=== PATIENT | male | born 1960 | race Caucasian/White ===

== ENCOUNTER 2016-04-01 14:11 | Outpatient (CLI) | payer OTHER ==
[~2016-04-01] VITALS: Ht 170.2 cm; Wt 110.9 kg
[~2016-04-01 14:11] MED LIST: ASPI81TA3 PO; ATOR20TA38 PO; DOCU-144 PO; FENO145T19 PO; FLUT16SP17 NASAL; FURO20TA3 PO; INSU100C SQ; LANT3I SC; LISI20TA11 PO; LORA10TA3 PO; METO25TA4 PO; MTF1000T PO; RANI300T PO; RANO500T2 PO; RIVA20TA PO
[2016-04-01 14:31] VITALS: BP 149/72; PULSE 105; RESP 18; Ht 170.2 cm; Wt 110.9 kg
--- NOTE | 2016-04-01 14:56 | PN ---
Date/Time of Note Date/Time of Note DATE: 04/01/16 TIME: 14:53 Outpatient Progress Note Chief Complaint Hypertension/diabetes/asthma/ASHD/CHF/CVA HPI Hypertension/no headache, no dizziness, no impaired vision, no local focal new Diabetes/no bleeding except polyuria hypoglycemia, gastroparesis, Asthma/patient still has shortness of breath on exertion, no hemoptysis, no fever or chill, patient get short of breath on climbing stairs, ASHD/no chest pain or PND orthopnea, patient is seeing ultrasound tech in the morning, patient history of paroxysmal A. fib fibrillation, CHF/patient has bilateral ankle edema, patient also has slight shortness of breath on exertion, patient has minimal PND and orthopnea, CVA/no seizure or dysphagia, no new symptoms, Review of Systems Const: No Fever, no chills, no Wt. loss, no Fatigue, normal appetite, no diaphoresis. Eyes: No pain, no discharge, no redness, no visual change, no foreign body. ENT: No pain, no bleeding, no congestion, no sore throat, no dysphagia, no discharge or rhinitis. Lymph: No adenopathy, no tender nodes, no lymphedema. Resp: Mild SOB, no cough, no sputum, no wheezing, no chest pain. CV: No chest pain, no palpitaions, no WILEY, no PND, bilateral ankle edema. GI: Normal appetite, no pain, no nausea, no vomiting, no diarrhea, no blood, no constipation. : No frequency, no urgency, no dysuria, no hematuria, no flank pain, no discharge, no bleeding. Musc: No bone/joint pain, no back pain, no neck pain, no knee pain, no restricted ROM. Skin: No rash, no skin lesions, no erythema, no laceration, no bruising, no pruritus. Neuro: No BARBA, no dizziness, no syncope, no seizure, no focal-weakness. Endo: No polyuria, no polydypsia, no dry-skin, no temp-intolerance. Psych: No hallucinations, no depression, no anxiety, no suicidal ideation. Ext: Bilateral ankle edema, no pain, no ulcer, no weakness. Physical Exam Vital Signs Date Time Temp Pulse Resp B/P Pulse Ox O2 Delivery O2 Flow Rate FiO2 04/01/16 14:31 98.0 105 18 149/72 92 Room Air General Appearance: A 55 year-old male who appears well-developed, well- nourished, in no acute distress. HEENT: Head normocephalic, atraumatic. Pupils equal, round, reactive to light and accommodate. Sclerae are no jaundice. Nasal turbinates pink without erythema or nasal discharge. Mucous membranes pink and moist without lesions. Oropharynx clear without any exudate or discharge. NECK: Supple. Trachea midline, No thyromegaly, No cervical lymphadenopathy, No mass, No carotid bruits, No JVD, Carotid pulses 2+ bilaterally. PULMONARY: Clear to auscultaion bilaterally, No retractions, Chest expansion symmetric bilaterally, no rales, no ronchi, no dulness on percussion. CARDIAC: Normal SI and S2, Regular rate and rythm, no murmur, gallop, or rub. Bilateral ankle edema, GASTROINTESTINAL: Abdomen is soft, non-tender, Non Rigid, No distention, Positive bowel sounds x4 quadrants, Liver normal. SKIN: Warm, dry, no rash, no bruise, no echmosis. EXTREMITIES: Bilateral lower extremities 3+ edema, no phlabitus, pulse palpable , no contracture. MUSCULOSKELETAL: Spine Normal, Non-tender, Normal range of motion, No swelling, no deformity, no clubbing, or cyanosis, the patient 3+ edema to bilateral lower extremities, dorsalis pedis pulses palpable bilaterally. NEUROLOGIC: The patient is awake, alert, oriented, responding to yes/no questions appropriately, moving all extremities, cranial nerve intact, normal strenght, normal power, normal coordination, normal gait. Allergies Coded Allergies: No Known Allergy (Unverified , 01/12/16) PMH No change Social Hx No change Family Hx No change Assessment/Plan Impression Hypertension/diabetes/asthma/ASHD/CHF/CVA Plan Patient blood pressure slightly elevated, patient has also bilateral ankle edema , patient also has symptoms of early CHF, patient is already on Lasix 20 mg twice a day, Will increase Lasix to 40 mg in the morning, and 20 mg in the evening, Patient to follow with the ultrasound tech in the morning, CBC CMP in 2 weeks, and patient to take the report to the primary care physician , and an chest diuretics accordingly, Patient very high risk for repeated admission, Medications Home Meds Reported Medications Rivaroxaban* (Xarelto*) 20 Mg Tablet, 20 MG PO WITH DINNER, TAB 03/19/16 Ranolazine* (Ranexa*) 500 Mg Tab.sr.12h, 500 MG PO Q12, TAB 03/19/16 Ranitidine Hcl* (Ranitidine Hcl*) 300 Mg Tablet, 300 MG PO HS, #30 TAB 03/19/16 Metformin* (Glucophage*) 1,000 Mg Tablet, 1000 MG PO BID, #60 TAB 03/19/16 Loratadine* (Loratadine*) 10 Mg Tablet, 10 MG PO DAILY, #30 TAB 03/19/16 Insulin Lispro (Humalog) 100 Unit/1 Ml Cartridge, 12 UNIT SQ TID 03/19/16 Insulin Glargine* (Lantus*) 100 Unit/Ml Soln, 30 UNIT SC QHS, #1 VIAL 03/19/16 Fenofibrate Nanocrystallized* (Fenofibrate*) 145 Mg Tablet, 145 MG PO DAILY, TAB 03/19/16 Docusate Sodium* (Colace*) 100 Mg Capsule, 100 MG PO BID, #60 CAP 03/19/16 Fluticasone Propionate* (Fluticasone Propionate* Nasal) 50 Mcg/[place] - 16 Gm [place].susp, 1 SPRAY NASAL BID, #1 BOTTLE TO EACH NOSTRIL 09/08/15 Lisinopril* (Lisinopril*) 20 Mg Tablet, 20 MG PO DAILY, #30 TAB 09/08/15 Atorvastatin Calcium* (Atorvastatin Calcium*) 20 Mg Tablet, 20 MG PO QHS, #30 TAB 09/08/15 Metoprolol Tartrate* (Lopressor*) 25 Mg Tablet, 25 MG PO BID, #60 TAB 09/08/15 Furosemide* (Furosemide*) 20 Mg Tablet, 20 MG PO BID, #30 TAB 09/08/15 Aspirin* (Aspirin* Chew) 81 Mg Tab.chew, 81 MG PO DAILY, TAB.CHEW 09/08/15 Discontinued Reported Medications Furosemide* (Furosemide*) 20 Mg Tablet, 20 MG PO BID, #30 TAB 03/19/16 JES ALBRIGHT MD Apr 01, 2016 14:55
== END 2016-04-01 17:00 | disposition home or self-care (01) ==
LOC: DCC 14:11
PROVIDERS: ATTEND Internal Medicine
DX: I10 Essential (primary) hypertension (principal); E11.9 Type 2 diabetes mellitus without complications; J45.909 Unspecified asthma, uncomplicated; I25.10 Atherosclerotic heart disease of native coronary artery without angina pectoris; R60.0 Localized edema; I50.9 Heart failure, unspecified
CPT/HCPCS: G0463

== ENCOUNTER 2016-12-25 08:32 | Inpatient (IN) | payer OTHER ==
[~2016-12-25] VITALS: Ht 170.2 cm; Wt 107.0 kg
[2016-12-25] MEDS ORDERED: ASPIRIN 81 MG TAB PO STA (09:34)
--- NOTE | 2016-12-25 09:34 | ERA ---
ER Documentation Chief Complaint Date/Time DATE: 12/25/16 TIME: 08:46 Chief Complaint Pt dizzyness, BARBA and R arm weakness since last night, worst today. HPI This is a 56-year-old male with a past medical history of hypertension, hyperlipidemia, coronary artery disease, congestive heart failure, previous stroke in 2006, on Xarelto and aspirin currently who is presenting with headache , lightheadedness, right arm and leg weakness with balance issues. The patient reported to me that it started when he woke up this morning, but he initially told triage that it started last night. When he woke up this morning, it was present. He was hoping that it would go away on its own but it did not, so he came here for further evaluation. The patient's biggest concern was that he felt imbalanced and unsteady on his feet when he walked. He reports presenting similarly several years ago when he had his last stroke. He has no residual deficits from this. He takes his Xarelto and aspirin compliantly. He does not endorse dysarthria or slurred speech. He is not aphasic. The patient denies feeling sick recently. The patient denies fever or chills. The patient has had no headache or vision changes. The patient denies lightheadedness or dizziness. The patient has had no chest pain or shortness of breath trouble breathing. The patient denies abdominal pain or changes to bowel movements or urination. ROS All systems reviewed and are negative except as per history of present illness. Medications Home Meds Reported Medications Metoprolol Tartrate* (Lopressor*) 50 Mg Tab, 50 MG PO BID, #60 TAB 12/25/16 Lisinopril* (Lisinopril*) 40 Mg Tablet, 40 MG PO DAILY, #30 TAB 12/25/16 Insulin Lispro (Humalog Kwikpen) 200 Unit/1 Ml Insuln.pen, 20 UNIT SQ AC MEALS, EA 12/25/16 Insulin Glargine* (Lantus*) 100 Unit/Ml Soln, 70 UNIT SC DAILY, #1 VIAL 12/25/16 Atorvastatin* (Atorvastatin*) 40 Mg Tablet, 40 MG PO QHS, #30 TAB 12/25/16 Amlodipine Besylate* (Amlodipine Besylate*) 10 Mg Tablet, 10 MG PO DAILY, #30 TAB 12/25/16 Liraglutide (Victoza 2-Joce) 0.6 Mg/0.1 Ml Pen.injctr, 1.2 MG SQ DAILY, SYR 12/25/16 Ergocalciferol (Vitamin D2) (VITAMIN D2) 2,000 Unit Tablet, 2000 UNIT PO DAILY, TAB 12/25/16 Rivaroxaban* (Xarelto*) 20 Mg Tablet, 20 MG PO WITH DINNER, TAB 03/19/16 Ranolazine* (Ranexa*) 500 Mg Tab.sr.12h, 500 MG PO Q12, TAB 03/19/16 Ranitidine Hcl* (Ranitidine Hcl*) 300 Mg Tablet, 300 MG PO HS, #30 TAB 03/19/16 Metformin* (Glucophage*) 1,000 Mg Tablet, 1000 MG PO BID, #60 TAB 03/19/16 Loratadine* (Loratadine*) 10 Mg Tablet, 10 MG PO DAILY, #30 TAB 03/19/16 Fenofibrate Nanocrystallized* (Fenofibrate*) 145 Mg Tablet, 145 MG PO DAILY, TAB 03/19/16 Docusate Sodium* (Colace*) 100 Mg Capsule, 100 MG PO BID, #60 CAP 03/19/16 Fluticasone Propionate* (Fluticasone Propionate* Nasal) 50 Mcg/[place] - 16 Gm [place].susp, 1 SPRAY NASAL BID, #1 BOTTLE TO EACH NOSTRIL 09/08/15 Aspirin* (Aspirin* Chew) 81 Mg Tab.chew, 81 MG PO DAILY, TAB.CHEW 09/08/15 Discontinued Reported Medications Insulin Lispro (Humalog) 100 Unit/1 Ml Cartridge, 12 UNIT SQ TID 03/19/16 Insulin Glargine* (Lantus*) 100 Unit/Ml Soln, 30 UNIT SC QHS, #1 VIAL 03/19/16 Lisinopril* (Lisinopril*) 20 Mg Tablet, 20 MG PO DAILY, #30 TAB 09/08/15 Atorvastatin Calcium* (Atorvastatin Calcium*) 20 Mg Tablet, 20 MG PO QHS, #30 TAB 09/08/15 Metoprolol Tartrate* (Lopressor*) 25 Mg Tablet, 25 MG PO BID, #60 TAB 09/08/15 Furosemide* (Furosemide*) 20 Mg Tablet, 20 MG PO BID, #30 TAB 09/08/15 Allergies Allergies: Coded Allergies: No Known Allergy (Unverified , 12/25/16) PMhx/Soc History of Surgery: Yes (APPENDECTOMY) Anesthesia Reaction: No Hx Neurological Disorder: Yes (MIGRAINE, STROKE 2006) Hx Respiratory Disorders: Yes (SLEEP APNEA, HX. OF PNA) Hx Cardiac Disorders: Yes (CHF, CHESTPAINS, PALPITATIONS, ANGINA) Hx Psychiatric Problems: Yes (SWELLING LEGS) Hx Miscellaneous Medical Probl: Yes (HTN, HIGH CHOLESTEROL, SOB) Hx Alcohol Use: Yes Hx Substance Use: No Hx Tobacco Use: No FmHx Family History: diabetes Physical Exam Vitals Vital Signs Date Time Temp Pulse Resp B/P Pulse Ox O2 Delivery O2 Flow Rate FiO2 12/25/16 08:34 97.0 77 18 147/80 97 Physical Exam Const: No apparent distress, well-developed, well-nourished Head: Atraumatic Eyes: Normal Conjunctiva. Extraocular movements intact. ENT: Normal External Ears, Nose and Mouth. Neck: Full range of motion. ~ No meningismus. Resp: Clear to auscultation bilaterally Cardio: Regular rate and rhythm, no murmurs Abd: Soft, non tender, non distended. Normal bowel sounds Skin: No petechiae or rashes Back: No midline or flank tenderness Ext: No cyanosis, or edema Neur: Awake and alert, oriented 4. Cranial nerves intact. No facial droop. Normal strength and sensation in all extremities. Coordination with finger to nose normal. Mild drift to RUE and RLE. Psych: Normal Mood and Affect Result Diagram: 12/25/16 0945 12/25/16 0945 Results 24 hrs Laboratory Tests Test 12/25/16 09:45 12/25/16 10:15 White Blood Count 8.510^3/ul Red Blood Count 5.2710^6/ul Hemoglobin 15.2g/dl Hematocrit 45.5% Mean Corpuscular Volume 86.3fl Mean Corpuscular Hemoglobin 28.8pg Mean Corpuscular Hemoglobin Concent 33.4g/dl Red Cell Distribution Width 12.7% Platelet Count 07359^3/UL Mean Platelet Volume 8.8fl Neutrophils % 66.2% Lymphocytes % 19.8% Monocytes % 7.7% Eosinophils % 5.2% Basophils % 0.5% Nucleated Red Blood Cells % 0.0/100WBC Neutrophils # 5.610^3/ul Lymphocytes # 1.710^3/ul Monocytes # 0.710^3/ul Eosinophils # 0.410^3/ul Basophils # 0.010^3/ul Nucleated Red Blood Cells # 0.010^3/ul Prothrombin Time 11.8Sec Prothrombin Time Ratio 0.9 INR International Normalized Ratio 0.87 Activated Partial Thromboplast Time 25.8Sec Sodium Level 138mmol/L Potassium Level 4.0mmol/L Chloride Level 103mmol/L Carbon Dioxide Level 26mmol/L Anion Gap 13 Blood Urea Nitrogen 9mg/dl Creatinine 0.88mg/dl Glucose Level 180mg/dl Hemoglobin A1c 8.9% Calcium Level 9.6mg/dl Troponin I < 0.012ng/ml Urine Color YELLOW Urine Clarity CLEAR Urine pH 7.0 Urine Specific [place] 1.015 Urine Ketones NEGATIVEmg/dL Urine Nitrite NEGATIVEmg/dL Urine Bilirubin NEGATIVEmg/dL Urine Urobilinogen NEGATIVEmg/dL Urine Leukocyte Esterase NEGATIVELeu/ul Urine Hemoglobin NEGATIVEmg/dL Urine Glucose 3+mg/dL Urine Total Protein NEGATIVEmg/dl Urine Opiates Screen Negative Urine Barbiturates Negative Urine Amphetamines Screen Negative Urine Benzodiazepines Screen Negative Urine Cocaine Screen Negative Urine Cannabinoids Negative Current Medications Medications (Trade) Dose Ordered Sig/Lainey Route PRN Reason Start Time Stop Time Status Last Admin Dose Admin Aspirin (Aspirin) 243 mg ONCE STAT PO 12/25/16 09:34 12/25/16 09:43 DC 12/25/16 10:19 Ondansetron HCl (Zofran Inj) 4 mg ER BRIDGE PRN IV NAUSEA AND/OR VOMITING 12/25/16 13:30 12/26/16 13:29 Acetaminophen (Tylenol Tab) 650 mg ER BRIDGE PRN PO MILD PAIN/FEVER 12/25/16 13:30 12/26/16 13:29 Procedures/MDM MDM Patient's presentation warrants further investigation. The patient has a history of previous stroke. Despite being on Xarelto and aspirin, I am concerned that he could have had a TIA today. The patient's initial NIH stroke scale was 2 for mild right upper and lower extremity drift/weakness. He did not have any sensory deficits. That said, his symptoms significantly improved while in the hospital. The patient did also endorse a headache when he woke up. A complex migraine is also a possibility, but a stroke workup needs to be performed. Basic blood work will be sent off. A CT scan will be obtained to evaluate for ischemia versus hemorrhage. LABS The patient's blood work was obtained and reviewed. The patient seemed shows no leukocytosis or left shift. The patient is afebrile, and I do not suspect a systemic infection. The patient is not anemic today. The patient's platelet count is unremarkable. The patient's CMP shows no signs of metabolic or electrolyte abnormality. The patient has normal renal and hepatic function testing. The patient does have an elevated hemoglobin A1c. His INR is unremarkable. His urinalysis shows no signs of infection or hematuria. He does have 3+ glucose in his urine but no ketones. He does not have an anion gap , and I do not suspect DKA. EKG EKG read by me: Rate/Rhythm: Regular rate and rhythm at a rate of 71 Intervals: Normal [place]: Normal Impression: No evidence of acute ischemia or arrhythmia IMAGING CXR FINDINGS: The lungs are clear. The heart size is normal. There is no pleural effusion. There is no pneumothorax. IMPRESSION: 1. Normal chest radiograph. 2. No change from 09/08/2015. Electronically viewed and signed by .Timoteo Dyer MD, MD on 12/25/2016 10:08 CT Head FINDINGS: There is moderate diffuse cerebral volume loss with sulcal and ventricular dilatation. No discrete extra-axial fluid collection or masses seen. The ventricles are in the midline and of normal contour and configuration. There are multiple focal of diminished attenuation in the periventricular and subcortical white matter of both cerebral hemispheres. There is no associated mass effect. There is preservation of normal hodges-white discrimination. No intracranial hemorrhage is seen. There is normal aeration of the visualized paranasal sinuses. IMPRESSION: Atrophy. White matter disease compatible with chronic small vessel ischemia. No intracranial hemorrhage, mass or evidence of large vessel stroke. Study was performed and 09:54 a.m. and interpreted at 10:05 a.m. Findings were telephoned directly to referring physician immediately following the exam. Electronically viewed and signed by .Sj Emmanuel MD, MD on 12/25/2016 10: 06 TREATMENT/DISPOSITION The patient was given full dose aspirin in the emergency department for the possibility of a TIA versus stroke. There is no evidence of hemorrhage or obvious ischemia on the CT scan. While the patient's symptoms have resolved, he has a significant history and I am concerned that a thromboembolic event could have happened, such as a TIA. He will be admitted to the hospital for further evaluation and management. The patient was admitted to the panel physician, Dr. Grant, at 1:05 PM on December 25, 2016. Departure Diagnosis: Primary Impression: Acute weakness Additional Impressions: TIA (transient ischemic attack) Qualified Code: G45.9 - Transient cerebral ischemia, unspecified type Headache Qualified Code: R51 - Acute nonintractable headache, unspecified headache type Condition: BLAINE Jaramillo MD Dec 25, 2016 08:56
[2016-12-25 09:59] LABS: BASOPHILS % 0.5 % (0.0-2.0); EOSINOPHILS # 0.4 10^3/ul (0.0-0.5); EOSINOPHILS % 5.2 % (0.0-7.0); HEMATOCRIT 45.5 % (42.0-52.0); HEMOGLOBIN 15.2 g/dl (14.0-18.0); LYMPHOCYTES # 1.7 10^3/ul (0.8-2.9); LYMPHOCYTES % 19.8 % (15.0-51.0); MEAN CORPUSCULAR HEMOGLOBIN 28.8 pg (29.0-33.0); MEAN CORPUSCULAR HGB CONC 33.4 g/dl (32.0-37.0); MEAN CORPUSCULAR VOLUME 86.3 fl (82.0-101.0); MEAN PLATELET VOLUME 8.8 fl (7.4-10.4); MONOCYTE # 0.7 10^3/ul (0.3-0.9); MONOCYTES % 7.7 % (0.0-11.0); NEUTROPHIL # 5.6 10^3/ul (1.6-7.5); NEUTROPHILS % 66.2 % (39.0-77.0); PLATELET COUNT 305 10^3/UL (140-415); RED BLOOD COUNT 5.27 10^6/ul (4.70-6.10); RED CELL DISTRIBUTION WIDTH 12.7 % (11.5-14.5); WHITE BLOOD COUNT 8.5 10^3/ul (4.8-10.8)
--- NOTE | 2016-12-25 10:06 | RADRPT ---
PROCEDURE: CT Brain without contrast. CLINICAL INDICATION: Stroke TECHNIQUE: A CT of the brain was performed on a multidetector CT scanner utilizing axial imaging f rom the skull base through the vertex without IV contrast. Multiplanar reformatted images were made . Images were reviewed on a PACS workstation. The CTDIvol is 720 mGy and the DLP is 44 mGycm. Individualized dosed optimization technique was used for the performance of this exam. This included 1. Automated exposure control. 2. Adjustment of the mA and / or kV according to the patient's size. 3. The use of iterative reconstruction technique. COMPARISON: None FINDINGS: There is moderate diffuse cerebral volume loss with sulcal and ventricular dilatation. No discrete e xtra-axial fluid collection or masses seen. The ventricles are in the midline and of normal contour and configuration. There are multiple focal of diminished attenuation in the periventricular and sub cortical white matter of both cerebral hemispheres. There is no associated mass effect. There is pre servation of normal hodges-white discrimination. No intracranial hemorrhage is seen. There is normal aeration of the visualized paranasal sinuses. IMPRESSION: Atrophy. White matter disease compatible with chronic small vessel ischemia. No intracranial hemorrh age, mass or evidence of large vessel stroke. Study was performed and 09:54 a.m. and interpreted at 10:05 a.m. Findings were telephoned directly t o referring physician immediately following the exam. .Sj Emmanuel MD, MD Date Time Electronically viewed and signed by .Sj Emmanuel MD, on 12/25/2016 10:06 .A/
--- NOTE | 2016-12-25 10:08 | RADRPT ---
PROCEDURE: XR Chest. CLINICAL INDICATION: Shortness of breath. Weakness and dizziness. TECHNIQUE: Single frontal view. COMPARISON: 09/08/2015. FINDINGS: The lungs are clear. The heart size is normal. There is no pleural effusion. There is no pneumothorax. IMPRESSION: 1. Normal chest radiograph. 2. No change from 09/08/2015. RPTAT: QQ .Timoteo Dyer MD, MD Date Time Electronically viewed and signed by .Timoteo Dyer MD, MD on 12/25/2016 10:08 .R/
[2016-12-25 10:22] LABS: INR 0.87; PROTIME 11.8 Sec (12.2-14.2); PT RATIO 0.9
[2016-12-25 10:23] LABS: PARTIAL THROMBOPLASTIN TIME 25.8 Sec (25.0-35.0)
[2016-12-25 10:26] LABS: ANION GAP 13 (8-16); BLOOD UREA NITROGEN 9 mg/dl (7-20); CALCIUM 9.6 mg/dl (8.4-10.2); CARBON DIOXIDE 26 mmol/L (21-31); CHLORIDE 103 mmol/L (97-110); CREATININE 0.88 mg/dl (0.61-1.24); GLUCOSE 180 mg/dl (70-220); SODIUM 138 mmol/L (135-144)
[2016-12-25 10:38] LABS: TROPONIN-I < 0.012 ng/ml (0.00-0.12)
[2016-12-25 11:03] LABS: ADD UMIC NO; UR ASCORBIC ACID NEGATIVE (NEGATIVE); UR BILIRUBIN (Dip) NEGATIVE (NEGATIVE); UR BLOOD (Dip) NEGATIVE (NEGATIVE); UR CLARITY CLEAR (CLEAR); UR COLOR YELLOW (YELLOW); UR GLUCOSE (Dip) 3+ mg/dL (NEGATIVE); UR KETONES (Dip) NEGATIVE (NEGATIVE); UR LEUKOCYTE ESTERASE (Dip) NEGATIVE Leu/ul (NEGATIVE); UR NITRITE (Dip) NEGATIVE (NEGATIVE); UR SPECIFIC GRAVITY (Dip) 1.015 (1.003-1.030); UR TOTAL PROTEIN (Dip) NEGATIVE (NEGATIVE); UR UROBILINOGEN (Dip) NEGATIVE (NEGATIVE)
[2016-12-25 11:17] LABS: BARBITURATES Negative (NEGATIVE); BENZODIAZEPINES Negative (NEGATIVE); CANNABINOIDS Negative (NEGATIVE); COCAINE Negative (NEGATIVE); OPIATES Negative (NEGATIVE)
[2016-12-25] MEDS ORDERED: ERGO2000 PO (11:36)
[2016-12-25] MEDS ORDERED: LIRA0.6P SQ (11:37)
[2016-12-25] MEDS ORDERED: ATOR40TA68 PO (11:37)
[2016-12-25] MEDS ORDERED: AMLO-147 PO (11:37)
[2016-12-25] MEDS ORDERED: LANT3I SC (11:38)
[2016-12-25] MEDS ORDERED: INSU200I SQ (11:38)
[2016-12-25] MEDS ORDERED: LISI40TA9 PO (11:38)
[2016-12-25] MEDS ORDERED: METO-429 PO (11:39)
[2016-12-25] MEDS ORDERED: ONDANSETRON 4 MG INJ IV PRN ×2 (13:30→16:30)
[2016-12-25] MEDS ORDERED: ACETAMINOPHEN 325 MG TAB PO PRN ×2 (13:30→16:30)
[2016-12-25] MEDS ORDERED: ALBUTEROL/IPRATROPIUM (NEB) 3 ML AMP HHN PRN (16:30)
[2016-12-25] MEDS ORDERED: MAGNESIUM HYDROXIDE 30ML CUP PO PRN (16:30)
[2016-12-25] MEDS ORDERED: HYDROCODONE/APAP (5/325) TAB PO PRN (16:30)
[2016-12-25] MEDS ORDERED: NACL 0.9% 3 ML SYG IV SCH (16:30)
[2016-12-25] MEDS ORDERED: NITROGLYCERIN (SL) 0.4 MG TAB SL PRN (16:30)
[2016-12-25] MEDS ORDERED: LORAZEPAM 2 MG INJ IV PRN (16:30)
[2016-12-25] MEDS ORDERED: NA PHOSPHATE/BIPHOS 133 ML ENEMA PR PRN (16:30)
[2016-12-25] MEDS ORDERED: DOCUSATE SODIUM 100 MG CAP PO PRN (16:30)
[2016-12-25] MEDS ORDERED: hydrALAzine 20 MG INJ IV PRN (16:30)
[2016-12-25] MEDS ORDERED: morphine 2 MG INJ IV PRN (16:30)
--- NOTE | 2016-12-25 16:54 | RADRPT ---
PROCEDURE: US carotid arteries. CLINICAL INDICATION: Dizziness. Syncope. TECHNIQUE: Multiple sonographic images of the carotid arteries and vertebral arteries were obtaine d utilizing hodges scale, duplex, and color-flow imaging. The images were reviewed on a PACS workstati on. COMPARISON: CT scan of the brain done earlier the same day. FINDINGS: Evaluation of the right carotid bifurcation region reveals mild atherosclerotic disease. Evaluation of the left carotid bifurcation region reveals mild atherosclerotic disease. There is antegrade flow within the vertebral arteries bilaterally. RIGHT CAROTID MEASUREMENTS: Common Carotid [id number] (cm/sec) Internal Carotid Artery 55 (cm/sec) External Carotid Artery 95 (cm/sec) Vertebral Artery 36 (cm/sec) Internal Carotid/Common Carotid0.7 LEFT CAROTID MEASUREMENTS: Common Carotid [id number] (cm/sec) Internal Carotid Artery 92 (cm/sec) External Carotid Artery 93 (cm/sec) Vertebral Artery 41 (cm/sec) Internal Carotid/Common Carotid1.0 Validated velocity measurements with angiographic measurements. Velocity criteria are extrapolated f rom diameter data as defined by the Society of Radiologists in Ultrasound Consensus Conference. Radi ology 2003; 229;340-346. This study does indirectly reference the measurement of the distal ICA raine meter as the denominator for stenosis measurement. IMPRESSION: 1. Less than 50% stenosis bilaterally in the internal carotid arteries. 2. Normal antegrade flow in the vertebral arteries bilaterally. RPTAT: QQ SRU Consensus Conference Criteria for the Diagnosis of Carotid Artery Stenosis* Degree of Stenosis, % ICA PSV, cm/sec Plaque Estimate, % ICA/CCA PSV Ratio Normal <125 None <2.0 <50 <125 <50 <2.0 50 69 125-230 >50 2.0-4.0 >70 but less than near occlusion >230 >50 <4.0 Near occlusion High, low, or undetectable Visible Variable Total occlusion Undetectable Visible, no detectable lumen Not applicable *Cartoid artery stenosis: hodges-scale and Doppler US diagnosis. Society of Radiologists in Ultrasound Consensus Conference. Radiology 2003; 229: 340-346 .Timoteo Dyer MD, Date Time Electronically viewed and signed by .Timoteo Dyer MD, on 12/25/2016 16:54 .R/
--- NOTE | 2016-12-25 17:28 | HP ---
DATE OF ADMISSION: 12/25/2016 CHIEF COMPLAINT: Lightheadedness and right-sided weakness. HISTORY OF PRESENT ILLNESS: A 56-year-old male, past medical history of prior stroke in 2006, coronary artery disease, CHF, hypertension, AFib or atrial flutter on Xarelto off and on for the last year, prior pneumonia, sleep apnea, high cholesterol and migraines who presents with dizziness and lightheadedness. Symptoms began at 4 a.m. Shortly after that he developed right upper and right lower extremity weakness symptoms as well. He had some balance issues as well. He had some mild slurred speech but no fevers or chills. No upper or lower GI bleeding. No nausea, vomiting. No diarrhea. No constipation. He told his . His symptoms still persisted until about 8:00 and he decided that he should come to the ER. He "felt drunk". When he came in today, he had a head CT that was negative for any signs of any acute stroke. PAST MEDICAL HISTORY: As stated above. ALLERGIES: NO KNOWN DRUG ALLERGIES. MEDICATIONS: 1. Amlodipine 10 mg daily. 2. Lisinopril 40 mg daily. 3. Metformin 1000 mg b.i.d. 4. Metoprolol 50 mg b.i.d. 5. Aspirin 81 mg daily. 6. Atorvastatin 40 mg at bedtime. 7. Colace 100 mg b.i.d. 8. Vitamin D2 at 2000 units daily. 9. Fenofibrate 145 mg daily. 10. Flonase nasal b.i.d. 11. Lantus 70 units daily. 12. Lispro 20 units with meals. 13. Liraglutide injection pen 1.2 mg subcu daily. 14. Loratadine 10 mg daily. 15. Ranitidine 300 mg at bedtime. 16. Ranexa 500 mg q.12 hours. 17. Xarelto 20 mg with dinner. PAST SURGICAL HISTORY: Appendectomy in the past. SOCIAL HISTORY: Drinks 3 cans of beers every weekend. Denies any IV drug abuse or smoking history. FAMILY HISTORY: Mother positive for kidney disease, dementia and diabetes; she is . Father had diabetes and alcohol abuse. PHYSICAL EXAMINATION: VITAL SIGNS: Today, T-max 97, pulse 77, respirations 18, blood pressure 147/80, saturating at 97 percent on room air. GENERAL: The patient is lying in bed, answering questions appropriately. No acute distress. HEENT: Pupils equal, round, reactive to light. Extraocular muscles intact. NECK: Supple. No thyromegaly. LUNGS: Clear to auscultation bilaterally. CARDIAC: S1, S2 heard. No rubs, gallops. ABDOMEN: Soft, nontender, nondistended. Normal bowel sounds. No rebound or guarding. NEUROLOGIC: He has got 4/5 strength in right upper extremity. Otherwise sensation intact bilateral upper and lower extremities. Gait was not assessed. The rest of his the musculoskeletal exam was normal. DIAGNOSTIC STUDIES: CBC is normal. The basic metabolic panel is normal. Hemoglobin A1c is 8.9. Troponin is negative x1. Coags are normal. Drug screen is negative. He had a head CT, again, that just shows atrophy, white matter disease compatible with chronic small-vessel ischemia but no intracranial hemorrhage, masses or evidence of any large vessel stroke. Chest x-ray showed normal chest radiograph. ASSESSMENT AND PLAN: This is a 56-year-old male coming in with right sided weakness symptoms, light-headedness and dizziness. Rule out stroke versus transient ischemic attack. 1. Right-sided weakness symptoms, lightheaded dizziness. We will admit the patient to telemetry floor. Do neuro checks every 4 hours. Check TSH, A1c, lipid panel. Allow for permissive hypertension. Get physical therapy, occupational therapy, and speech therapy evaluations as well. Consider getting a neurology consult. Get MRI of the brain, 2D echo and carotid Doppler studies as well. Continue high-dose aspirin. Holding all blood pressure medicines for now except for hydralazine if systolic greater than 220. 2. History of atrial fibrillation. Will admit the patient to telemetry. Continue Xarelto for now. 3. History of congestive heart failure. Again, we will get an echocardiogram for now. 4. History of prior stroke. Again, continue aspirin, Plavix. 5. High cholesterol. Check a lipid panel. 6. History of Migraines. Pain control medications as needed. 7. Gastrointestinal prophylaxis. H2 lyric. Dictated By: Eliezer Grant MD /rosaline/omid /Document#: [id number]
[2016-12-25] MEDS ORDERED: INSULIN LISPRO 20 UNIT SQ SCH (17:30)
--- NOTE | 2016-12-25 17:36 | RADRPT ---
PROCEDURE: MRI Brain without contrast. CLINICAL INDICATION: Right-sided weakness. TECHNIQUE: Routine MRI of the brain performed without intravenous contrast. COMPARISON: CT brain 12/25/2016 FINDINGS: Diffusion: No evidence of acute infarct, recent ischemia, or recent ictal focus. Hemorrhage: No evidence of focal hematoma or subarachnoid hemorrhage. No evidence for remote blood d egradation products. Mass effect/midline shift: None. Parenchymal volume: Mild central parenchymal volume loss is evident. Ventricular system: Concordant with the degree of parenchymal volume. Parenchymal signal changes: Nonspecific small scattered areas of T2 and FLAIR signal hyperintensity measuring several millimeters are seen in the supratentorial white matter most commonly due to chron ic moderate microvascular ischemic changes. Differential considerations include sequelae of migraine s; prior parenchymal injury from infectious or inflammatory/demyelinating process; vasculopathy. Vasculature: Appropriate flow voids suggesting patency of the central arterial system and visualize d dural venous sinuses. Paranasal sinuses: Mild mucosal thickening right frontal sinus. Mastoid air cells: Clear. Calvarium: Within normal limits. Extracranial soft tissues: Within normal limits. IMPRESSION: No evidence of diffusion signal abnormalities to suggest acute infarct, recent ischemia, or recent i ctal focus. No evidence of intracranial hemorrhage or mass effect. Nonspecific small scattered areas of T2 and FLAIR signal hyperintensity measuring several millimeter s are seen in the supratentorial white matter most commonly due to chronic moderate microvascular is chemic changes. Differential considerations include sequelae of migraines; prior parenchymal injury from infectious or inflammatory/demyelinating process; vasculopathy. These are concordant with the w rena matter changes seen on the prior CT scan of the brain. RPTAT: AADD .Partha Reese MD, MD Date Time Electronically viewed and signed by .Partha Reese MD, MD on 12/25/2016 17:36 .B/
[2016-12-25 17:42] VITALS: TEMP 98.2
[2016-12-25 17:56] VITALS: PULSE 76
[2016-12-25 18:12] VITALS: BP 160/80; PULSE 71; RESP 18; Ht 170.2 cm; Wt 107.0 kg
[2016-12-25] MEDS ORDERED: GLUCOSE GEL 15 GRAM TUBE BUCCAL PRN (19:00)
[2016-12-25] MEDS ORDERED: DEXTROSE 50% 50 ML SYRINGE IV PRN ×2 (19:00)
[2016-12-25] MEDS ORDERED: RIVAROXABAN 20 MG TABLET PO SCH (19:00)
[2016-12-25] MEDS ORDERED: GLUCOSE GEL 15 GRAM TUBE PO PRN ×2 (19:00)
[2016-12-25] MEDS ORDERED: GLUCAGON 1 MG INJ IM PRN (19:00)
[2016-12-25 20:15] VITALS: BP 139/72; RESP 18
[2016-12-25 20:32] VITALS: PULSE 78
[2016-12-25] MEDS ORDERED: ATORVASTATIN 40 MG TAB PO SCH (21:00)
[2016-12-25] MEDS: INSULIN ASPART [NOVOLOG] 3 ML PEN SC SCH (21:00)
[2016-12-25] MEDS ORDERED: RANITIDINE 150 MG TAB PO SCH (21:00)
[2016-12-25] MEDS: DOCUSATE SODIUM 100 MG CAP PO SCH (21:22)
[2016-12-25] MEDS: RANOLAZINE (SR) 500 MG TAB PO SCH (21:22)
[2016-12-25] MEDS: FLUTICASONE 0.05% 16 GM NAS SPRAY NASAL SCH (21:22)
[2016-12-25] MEDS: SOD CHLORIDE 0.45% 1,000 ML IV SCH (21:33)
[2016-12-26] VITALS (7 sets, daily range): BP systolic 133–160; BP diastolic 65–80; PULSE 68–69; RESP 18–19
[2016-12-26] MEDS: INSULIN ASPART [NOVOLOG] 3 ML PEN SC SCH ×8 (01:20→17:09)
[2016-12-26] MEDS ORDERED: ACCU-CHEK XX SCH (02:00)
[2016-12-26] MEDS: SOD CHLORIDE 0.45% 1,000 ML IV SCH (07:20)
[2016-12-26] MEDS ORDERED: LORATADINE 10 MG TAB PO SCH (09:00)
[2016-12-26] MEDS ORDERED: CHOLECALCIFEROL 2,000 UNIT CAP PO SCH (09:00)
[2016-12-26] MEDS ORDERED: NON-FORMULARY/PATIENT OWN MED (Ergocalciferol (Vitamin D2) (Vitamin D2) 2,000 UNIT) PO SCH (09:00)
[2016-12-26] MEDS ORDERED: INSULIN GLARGINE [LANtus] 3 ML PEN SC SCH (09:00)
[2016-12-26] MEDS ORDERED: FENOFIBRATE 145 MG TAB PO SCH (09:00)
[2016-12-26] MEDS ORDERED: ASPIRIN 81 MG TAB PO SCH (09:00)
[2016-12-26] MEDS ORDERED: ASPIRIN (EC) 325 MG TAB PO SCH (09:00)
[2016-12-26] MEDS ORDERED: NON-FORMULARY/PATIENT OWN MED (Liraglutide (Victoza 2-Pak) 1.2 MG) SQ SCH (09:00)
[2016-12-26] MEDS: FLUTICASONE 0.05% 16 GM NAS SPRAY NASAL SCH (09:12)
[2016-12-26] MEDS: DOCUSATE SODIUM 100 MG CAP PO SCH (09:13)
[2016-12-26] MEDS: RANOLAZINE (SR) 500 MG TAB PO SCH (09:14)
[2016-12-26 09:29] LABS: CHOL/HDL RATIO 3.2 RATIO
[2016-12-26 09:38] LABS: BASOPHIL # 0.1 10^3/ul (0.0-0.1); BASOPHILS % 0.6 % (0.0-2.0); EOSINOPHILS # 0.5 10^3/ul (0.0-0.5); EOSINOPHILS % 5.3 % (0.0-7.0); HEMATOCRIT 45.9 % (42.0-52.0); HEMOGLOBIN 15.9 g/dl (14.0-18.0); LYMPHOCYTES # 1.7 10^3/ul (0.8-2.9); LYMPHOCYTES % 17.2 % (15.0-51.0); MEAN CORPUSCULAR HEMOGLOBIN 29.7 pg (29.0-33.0); MEAN CORPUSCULAR HGB CONC 34.6 g/dl (32.0-37.0); MEAN CORPUSCULAR VOLUME 85.6 fl (82.0-101.0); MEAN PLATELET VOLUME 8.9 fl (7.4-10.4); MONOCYTE # 0.7 10^3/ul (0.3-0.9); MONOCYTES % 7.2 % (0.0-11.0); NEUTROPHIL # 6.8 10^3/ul (1.6-7.5); NEUTROPHILS % 69.2 % (39.0-77.0); PLATELET COUNT 341 10^3/UL (140-415); RED BLOOD COUNT 5.36 10^6/ul (4.70-6.10); RED CELL DISTRIBUTION WIDTH 12.6 % (11.5-14.5); WHITE BLOOD COUNT 9.8 10^3/ul (4.8-10.8)
[2016-12-26 09:55] LABS: CALCIUM 10.2 mg/dl (8.4-10.2); CREATININE 0.89 mg/dl (0.61-1.24); MAGNESIUM 1.6 mg/dl (1.7-2.5)
[2016-12-26 09:57] LABS: THYROID STIMULATING HORMONE 1.35 MIU/L (0.465-4.680)
--- NOTE | 2016-12-26 11:43 | PDOCDIS ---
Discharge Instructions CONDITION Patient Condition: Stable HOME CARE INSTRUCTIONS: Special Diet: dysphagia diet ACTIVITY: Activity Restrictions: Slowly Increase Activity FOLLOW UP/APPOINTMENTS Follow-up Plan Please take your medications as prescribed. Please follow-up with your regular doctor in the clinic in the next 1 week. KAYLA MALLORY Dec 26, 2016 11:43
[2016-12-26] MEDS ORDERED: MAGNESIUM SULFATE 2 GM/50 ML 50 ML IVPB ONE (12:00)
[2016-12-26] MEDS ORDERED: LIRAGLUTIDE 1.2 MG XX SCH (12:00)
[2016-12-26] MEDS ORDERED: [UNRECOGNIZED DRUG - OTHER] XX SCH (12:00)
--- NOTE | 2016-12-26 12:46 | DS ---
DATE OF ADMISSION: 12/25/2016 DATE OF DISCHARGE: 12/26/2016 HISTORY OF PRESENT ILLNESS: The patient came in with lightheadedness and dizziness and right-sided weakness. He was admitted to telemetry floor. He has a prior history of stroke in the past. IMAGING STUDIES: His imaging studies including MRI of the brain was negative for any acute infarcts or recent ischemia or recent echo focus. His head CT was negative, as well. His carotid Doppler showed study showed less than 50 percent stenosis of bilateral internal carotid arteries. Echocardiogram was performed, the results are still pending. HOSPITAL COURSE: During the course of his hospital stay, his weakness symptoms slowly improved. He still had some baseline right-sided weakness symptoms, likely from his old stroke which occurred in 2006. He had some low magnesium which was repleted. His A1c was found to be 8.8, but his sugars were stable. He was able to ambulate and tolerate a p.o. diet. Cholesterol panel is normal. He was seen by neurology team, as well. He was allowed for permissive hypertension until his MRI results came back, but his blood pressure remained stable. He will be discharged home today in improved condition. DISCHARGE MEDICATIONS: He will be sent home on the following medications: 1. Amlodipine 10 mg daily. 2. Aspirin 81 mg daily. 3. Atorvastatin 40 mg at bedtime. 4. Colace 100 mg b.i.d. 5. Vitamin D2, 2000 units daily. 6. Fenofibrate 145 mg daily. 7. Flonase spray b.i.d. 8. Lantus 70 units daily. 9. Lispro 20 units with meals. 10. Victoza 2-pack, 1.2 mg subcu daily. 11. Lisinopril 40 mg daily. 12. Loratadine 10 mg daily. 13. Metformin 50 mg b.i.d. 14. Ranitidine 300 mg at bedtime. 15. Ranexa 500 mg q.12 hours. 16. Xarelto 20 mg with dinner. DISCHARGE INSTRUCTIONS: He needs to follow up with his regular doctor in clinic in the next 1-2 weeks and also get the final results of the echocardiogram report by calling the hospital in the next 24 hours. FINAL DIAGNOSES: 1. Right-sided weakness symptoms, dizziness lightheadedness, ruled out for acute stroke, possibly secondary to transient ischemic attack. 2. History of atrial fibrillation on Xarelto. 3. History of congestive heart failure. 4. History of prior stroke in 2006. 5. History of coronary artery disease. 6. Essential hypertension. 7. Type 2 diabetes. 8. High cholesterol. Total time for discharge 45 minutes. Dictated By: Eliezer Grant MD /rosaline/timur /Document#: [id number]
--- NOTE | 2016-12-26 18:22 | HKNOTE ---
DATE OF SERVICE: 12/26/2016 HISTORY OF PRESENT ILLNESS: The patient is [id number] admitted to [facility] with a past medical history of hypertension and atrial fibrillation. We placed the patient on Xarelto. The patient was on comprehensive medications. The patient was admitted with suspected underlying stroke in which I saw him for more evaluation and treatment. Continue the patient on his anticoagulation. MEDICATIONS UPON ADMISSION: Include: 1. Amlodipine 10 mg once a day. 2. Lisinopril 40 mg once a day. 3. Metformin 1000 twice a day. 4. Metoprolol 50 mg twice a day. 5. Aspirin 81 mg once a day. 6. Lipitor 40 mg once a day. 7. Colace 100 mg twice a day. 8. Lantus 70 units once a day. 9. Ranexa 500 mg twice a day. 10. Xarelto 20 mg. The patient is admitted with headache, dizziness, right sided weakness. PHYSICAL EXAMINATION: GENERAL: The patient is alert, awake, oriented. Following simple commands. HEART: Regular rate and rhythm. LUNGS: Equal breath sounds. ABDOMEN: Soft, nondistended, nontender. MECHANICAL MAINTENANCE: Cranial nerves II: Pupils equal on both sides. Reactive to light. Cranial nerves III, IV, and : Almost intact. Cranial nerve V: Equal sensation to face. Cranial VII: Symmetrical face. Cranial nerve VIII: Decreased hearing bilaterally. Cranial nerves X: Elevated palate. Cranial nerves XI: Shoulder shrug 5/5. Cranial nerves XII: Elevated tongue. Motor exam: Decreased right hand computer security manager 4+/5. Sensation: . Coordination: Sqxilz-gg-gtjg is intact. ASSESSMENT AND PLAN: 1. The patient is [id number] status post transient ischemic attack. Continue the patient on Xarelto. Followup the patient in the outpatient clinic. 2. Underlying history of stroke, in which we advised the patient to followup with his medications, especially for blood pressure, dyslipidemia, diabetes and stroke prophylaxis. 3. Hypercholesterolemia. We will follow the patient with Lipitor 40 mg and followup with lipid panel. 4. History of diabetes. The patient is on multiple medications, including Victoza, metformin, and followup the patient with hemoglobin A1c. 5. Hypertension. We placed the place on amlodipine 10 mg as well as lisinopril 40 mg. 6. For stroke prophylaxis. The patient is on Xarelto 20 mg, which we counseled the patient about the benefits, risks or the medications and the importance to followup with the medical advise. The patient can followup in the outpatient clinic. Dictated By: Tim Uribe MD /rosaline/kenya /Document#: [id number]
--- NOTE | 2016-12-27 07:00 | CONS ---
DATE OF SERVICE: 12/26/2016 HISTORY OF PRESENT ILLNESS: The patient is a 56-year-old male who has a past medical history of stroke, coronary artery disease, diabetes, hypertension, atrial fibrillation on Xarelto. The patient has a history of pneumonia, sleep apnea, hypocholesterolemia, migraine headaches. The patient had a sudden onset of right sided weakness in which the patient came to the hospital for more evaluation and treatment. CT scan of his head is done. Shows no acute change. CURRENT MEDICATION: Includes: 1. Amlodipine 10 mg once a day. 2. Lisinopril 40 mg once a day. 3. Metformin 1000 twice a day. 4. Metoprolol 50 mg twice a day. 5. Aspirin 81 mg once a day. 6. Lipitor 40 mg once a day. 7. Colace 100 mg once a day. 8. 145 mg once a day. 9. Lantus insulin once a day. 10. Lispro 20 mg once a day. 11. Lortab 10 mg once a day. 12. Ranitidine 300 mg at bedtime. 13. Ranexa 500 mg every 12 hours. 14. Xarelto 20 mg with dinner. PHYSICAL EXAMINATION: GENERAL: The patient is alert, awake, and oriented to time, place and person. HEART: With regular rate. LUNGS: Equal breath sounds. ABDOMEN: Soft, nondistended, nontender. INSPECTOR COLD WORKING: CN II: Pupils equal on both sides. CN III, IV, and : Extraocular muscles intact. CN V: Equal sensation to face. CN : Symmetrical face. CN VIII: Decreased hearing bilaterally. CN IV, V: MOTOR: Decreased both hand technology officer, 4+/5. SENSATION: . COORDINATION: Zinnbb-gl-byai is intact. ASSESSMENT AND PLAN: 1. The patient is [id number] with underlying right sided weakness, probably secondary to lacunar infarction. The patient is already on Xarelto. Keep the patient on it with good prophylaxis. I suspect the patient has underlying atrial fibrillation. 2. Followup the patient with carotid Doppler and 2D echocardiogram. 3. History of diabetes. We will followup the patient with Accu- Chek and sliding scale insulin. 4. History of dyslipidemia. Keep the patient on Lipitor 40 mg as he takes. Followup the patient with lipid panel. 5. History of hypertension. Keep the blood pressure 140/90 always to avoid risk of stroke. 6. History of congestive heart failure. Followup the patient on his echocardiogram and Cardiology consult. The patient has multiple risk factors for stroke, for which she is continued on aspirin and Plavix for now. Followup the patient in regard to atrial fibrillation and congestive heart failure and followup with Cardiology recommendation. Dictated By: Tim Uribe MD /rosaline/lópez /Document#: [id number]
--- NOTE | 2016-12-27 22:50 | RADRPT ---
Echocardiogram Report Patient Name: BAUDILIO BARR Gender: Male Date: 1960 Study Date: 26-Dec-2016 Interlocking Machine Operator: SHAWN Location: E Ref. Physician: KAYLA MALLORY Quality: Adequate Procedures: Transthoracic echocardiogram with complete 2D, M-Mode, and Doppler examination, TDS subcostal images. Indications: Chest Pain. 2D/M Mode Doppler Measurement Value Normal Ranges Measurement Value Normal Ranges AoR Diam MM 3.1 cm AV Peak Deangelo 1.2 m/sec ACS MM 2.2 cm AV Peak PG 5.4 mmHg LVIDd 2D 5.1 3.5 - 5.6 cm LVOT Peak Deangelo 0.7 m/sec LVIDs 2D 3.6 2.1 - 4.1 cm LVOT Peak PG 1.9 mmHg LVPWd 2D 1.3 0.6 - 1.1 cm MV E Peak Deangelo 0.5 m/sec IVSd 2D 1.4 0.6 - 1.1 cm MV A Peak Deangelo 0.7 m/sec EDV 2D 125.6 cm3 MV E/A 0.8 ESV 2D 48.0 cm3 MV Decel Time 135 msec LA Dimen 2D 4.0 2.3 - 4.0 cm MV Decel Vermilion 4 MV E/A 0.8 PV Peak Deangelo 1.1 m/sec PV Peak PG 5.0 mmHg Findings Left Ventricle: Normal left ventricular systolic function. Normal left ventricular cavity size. Mild concentric left ventricular hypertrophy. Ejection fraction is visually estimated at 60 %. Tissue Doppler/Mitral Doppler indices are consistent with impaired relaxation (Stage I diastolic dysfunction). Right Ventricle: Normal right ventricular size. Normal right ventricular systolic function. Left Atrium: The left atrium is normal in size. Right Atrium: The right atrium is normal in size. Mitral Valve: Normal appearance of the mitral valve. Trace to mild mitral regurgitation. Aortic Valve: Normal appearance of the aortic valve. No significant aortic stenosis or insufficiency. Tricuspid Valve: Normal appearance of the tricuspid valve. No evidence of tricuspid regurgitation. Pulmonic Valve: Normal pulmonic valve appearance. No evidence of pulmonic regurgitation. Pericardium: Normal pericardium with no significant pericardial effusion. Aorta: Normal aortic root. IVC: Normal size and normal respiratory collapse consistent with normal right atrial pressure. Pulmonary Artery: Normal pulmonary artery size. Conclusions Normal left ventricular systolic function. Normal left ventricular cavity size. Mild concentric left ventricular hypertrophy. Ejection fraction is visually estimated at 60 %. Tissue Doppler/Mitral Doppler indices are consistent with impaired relaxation (Stage I diastolic dysfunction). Normal right ventricular size. Normal right ventricular systolic function. The left atrium is normal in size. The right atrium is normal in size. Trace to mild mitral regurgitation. No significant valvular stenosis or regurgitation seen of remaining visualized valves. Normal pericardium with no significant pericardial effusion. Electronically Signed By: Dillon Chery 27-Dec-2016 22:49:59 -0700 Patient Name: BAUDILIO BARR Study Date: 26-Dec-2016 [id number]
== END 2016-12-26 17:15 | disposition home or self-care (01) | DRG 69 ==
LOC: E/R 08:32 → MS4 13:09
PROVIDERS: ADMIT Hospitalist; ATTEND Hospitalist
DX: G45.9 Transient cerebral ischemic attack, unspecified (principal); I11.0 Hypertensive heart disease with heart failure; I48.91 Unspecified atrial fibrillation; Z86.73 Personal history of transient ischemic attack (TIA), and cerebral infarction without residual deficits; Z79.01 Long term (current) use of anticoagulants; Z79.82 Long term (current) use of aspirin; Z79.02 Long term (current) use of antithrombotics/antiplatelets; I25.10 Atherosclerotic heart disease of native coronary artery without angina pectoris; E11.9 Type 2 diabetes mellitus without complications; E78.00 Pure hypercholesterolemia, unspecified; E83.42 Hypomagnesemia
CPT/HCPCS: 36415; 70450; 70551; 71010; 80048; 80061; 80307; 81003; 82962; 83036; 83735; 84100; 84439; 84443; 84484; 85025; 85610; 85730; 93005; 93306; 93880; J1815; J3475

== ENCOUNTER 2017-01-29 09:24 | Emergency (ER) | payer OTHER ==
[~2017-01-29] VITALS: Ht 167.6 cm; Wt 108.0 kg
[~2017-01-29 09:24] MED LIST changes: +AMLO-147 PO; -ATOR20TA38 PO; +ATOR40TA68 PO; +ERGO2000 PO; -FURO20TA3 PO; -INSU100C SQ; +INSU200I SQ; +LIRA0.6P SQ; -LISI20TA11 PO; +LISI40TA9 PO; +METO-429 PO; -METO25TA4 PO
[2017-01-29 09:28] VITALS: Ht 167.6 cm; Wt 108.0 kg
[2017-01-29] MEDS ORDERED: KETOROLAC 30 MG INJ IM STA (10:03)
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
[2017-01-29] MEDS ORDERED: NAPR-260 PO (11:27)
[2017-01-29] MEDS ORDERED: ACET500C5 PO (11:28)
[2017-01-29 11:34] VITALS: BP 139/72; PULSE 77; RESP 14; TEMP 97.5
== END 2017-01-29 11:51 | disposition home or self-care (01) ==
LOC: FTE 09:24
DX: S49.92XA Unspecified injury of left shoulder and upper arm, initial encounter (principal); I10 Essential (primary) hypertension; J45.909 Unspecified asthma, uncomplicated; I50.9 Heart failure, unspecified; V49.40XA Driver injured in collision with unspecified motor vehicles in traffic accident, initial encounter; Z79.01 Long term (current) use of anticoagulants; Z79.4 Long term (current) use of insulin; Z79.82 Long term (current) use of aspirin; Z79.84 Long term (current) use of oral hypoglycemic drugs
CPT/HCPCS: 73030; 93005; 96372; J1885; Z7502; Z7610

== ENCOUNTER 2017-04-18 16:00 | Emergency (ER) | END 2017-04-18 20:12 | disposition left against medical advice (07) ==